=== PATIENT | male | born 1955 | race Caucasian/White ===

== ENCOUNTER 2016-11-17 18:11 | Inpatient (IN) | payer MEDICARE, MEDICAID ==
[~2016-11-17] VITALS: Ht 157.5 cm; Wt 69.9 kg
[2016-11-17] MEDS ORDERED: LORAZEPAM 2MG/ML CPJ IV ONE ×3 (19:00→22:30)
[2016-11-17] MEDS ORDERED: SODIUM CHLORIDE 0.9% 1000ML BAG (SEPSIS BOLUS) IV ONE (19:00)
[2016-11-17] MEDS ORDERED: LORAZEPAM 2MG/ML CPJ ONE (19:13)
[2016-11-17] MEDS ORDERED: LEVETIRACETAM 500MG PREMIX 100 ML IV ONE (19:45)
[2016-11-17 19:49] LABS: BASOPHILS % 0.3 % (0.0-2.0); EOSINOPHILS % 1.6 % (0.0-5.0); HEMATOCRIT. 43.2 % (42.0-52.0); LYMPHOCYTES % 17.1 % (20.0-50.0); MEAN CORPUSCULAR HEMOGLOBIN 27.5 pg (28.0-32.0); MEAN PLATELET VOLUME 9.4 fl (7.4-10.4); MONOCYTES % 10.4 % (2.0-8.0); NEUTROPHILS % 70.6 % (40.0-76.0); PLATELET 152 x1000/uL (130-400); RED BLOOD CELL COUNT 5.08 mill/uL (4.7-6.1); RED CELL DISTRIBUTION WIDTH 16.4 % (11.6-14.6)
[2016-11-17 19:53] LABS: CHLORIDE 99 mEq/L (98-107)
[2016-11-17 19:56] LABS: INR 1.3; PARTIAL THROMBOPLASTIN TIME 23.8 sec (23.4-31.0)
[2016-11-17 20:02] LABS: CARBON DIOXIDE 18 mEq/L (21-32); ETHANOL BLOOD < 10 mg/dL
[2016-11-17 20:05] LABS: TROPONIN I < 0.02 ng/mL (0.00-0.04)
[2016-11-17] MEDS ORDERED: LEVOFLOXACIN 750MG PREMIX 150 ML IV ONE (20:15)
[2016-11-17 20:23] LABS: CLARITY URINE CLEAR (CLEAR); COLOR URINE YELLOW (YELLOW); GLUCOSE URINE NEGATIVE (NEGATIVE); KETONES URINE NEGATIVE (NEGATIVE); LEUKOCYTE ESTERASE URINE NEGATIVE (NEGATIVE); NITRITE URINE NEGATIVE (NEGATIVE); OCCULT BLOOD URINE NEGATIVE (NEGATIVE); PROTEIN URINE NEGATIVE (NEGATIVE); UROBILINOGEN URINE 0.2 E.U./dL (0.2-1.0)
[2016-11-17 20:35] LABS: *AMPHETAMINES SCREEN URINE NEGATIVE (NEGATIVE); *BARBITURATES SCREEN URINE NEGATIVE (NEGATIVE); *BENZODIAZEPINES SCREEN URINE NEGATIVE (NEGATIVE); *COCAINE SCREEN URINE NEGATIVE (NEGATIVE); CANNABINOID URINE SCREEN NEGATIVE (NEGATIVE); METHADONE URINE SCREEN NEGATIVE (NEGATIVE); OPIATES URINE SCREEN PRESUMTIVE POSITIVE (NEGATIVE); PHENCYCLIDINE URINE SCREEN NEGATIVE (NEGATIVE)
[2016-11-17] MEDS ORDERED: ASPIRIN 300MG SUPP PR ONE (20:45)
[2016-11-17] MEDS ORDERED: ASPIRIN 81MG TABLET PO ONE (21:30)
[2016-11-17] MEDS ORDERED: ACETAMINOPHEN 325MG TABLET PO PRN (23:15)
[2016-11-17] MEDS ORDERED: IPRATROPIUM/ALBUTEROL 0.5-3(2.5)MG/3ML NEB INH PRN (23:15)
[2016-11-17] MEDS ORDERED: ONDANSETRON HCL 4MG/2ML VIAL IV PRN (23:15)
[2016-11-17] MEDS ORDERED: DOCUSATE SODIUM 100MG CAPSULE PO PRN (23:15)
[2016-11-17] MEDS ORDERED: NA PHOS,M-B/NA PHOS,DI-BA ENEMA 118ML PR PRN (23:15)
[2016-11-17] MEDS ORDERED: ACETAMINOPHEN 650MG SUPP PR PRN (23:15)
[2016-11-17] MEDS ORDERED: ACETAMINOPHEN 650MG/20.3ML UDC GT PRN (23:15)
[2016-11-17] MEDS ORDERED: DIPHENHYDRAMINE 50MG/ML VIAL IV PRN (23:15)
[2016-11-17] MEDS ORDERED: GUAIFENESIN 200MG/10ML SUGAR FREE UDC PO PRN (23:15)
[2016-11-17] MEDS ORDERED: MAGNESIUM/ALUMINUM HYDROXIDE/SIMETHICONE 30ML UDC PO PRN (23:15)
[2016-11-17 23:42] VITALS: BP 106/71
[2016-11-18] VITALS: BP 106/71
[2016-11-18] MEDS ORDERED: APIX2.5T PO (00:04)
[2016-11-18] MEDS ORDERED: COR25 PO (00:04)
[2016-11-18] MEDS ORDERED: PRAS10TA9 PO (00:04)
[2016-11-18] MEDS ORDERED: FURO20TA4 PO (00:04)
[2016-11-18] MEDS ORDERED: ZOLP10TA6 PO (00:04)
[2016-11-18] MEDS ORDERED: CARI350T PO (00:04)
[2016-11-18] MEDS ORDERED: ALPR1TAB2 PO (00:04)
[2016-11-18] MEDS ORDERED: FURO80TA3 PO (00:04)
[2016-11-18] MEDS ORDERED: ATOR-2 PO (00:04)
[2016-11-18] MEDS ORDERED: SPIR25TA4 PO (00:04)
[2016-11-18] MEDS ORDERED: LOSA25TA12 PO (00:04)
[2016-11-18] MEDS ORDERED: HYDR-519 PO (00:04)
[2016-11-18] MEDS ORDERED: HYDROCODONE/ACETAMINOPHEN 10/325MG TABLET PO PRN (00:15)
[2016-11-18] MEDS: HYDROCODONE/ACETAMINOPHEN 10/325MG TABLET PO PRN ×3 (03:15→21:27)
[2016-11-18 04:06] VITALS: BP 99/65
[2016-11-18] MEDS: SODIUM CHLORIDE 0.9% INJ 3ML FLUSH IVF SCH ×3 (05:32→21:29)
[2016-11-18 06:19] LABS: BASOPHILS % 0.3 % (0.0-2.0); EOSINOPHILS % 0.4 % (0.0-5.0); HEMATOCRIT. 38.9 % (42.0-52.0); HEMOGLOBIN. 12.8 g/dL (14.0-18.0); LYMPHOCYTES % 12.3 % (20.0-50.0); MEAN CORPUSCULAR HEMOGLOBIN 27.7 pg (28.0-32.0); MEAN CORPUSCULAR VOLUME 83.8 fL (80.0-94.0); MEAN PLATELET VOLUME 9.4 fl (7.4-10.4); MONOCYTES % 8.7 % (2.0-8.0); NEUTROPHILS % 78.3 % (40.0-76.0); PLATELET 128 x1000/uL (130-400); RED BLOOD CELL COUNT 4.64 mill/uL (4.7-6.1); RED CELL DISTRIBUTION WIDTH 16.2 % (11.6-14.6)
[2016-11-18 07:20] LABS: CARBON DIOXIDE 24 mEq/L (21-32); CHLORIDE 103 mEq/L (98-107)
[2016-11-18 07:27] LABS: CREATINE KINASE 54 IU/L (39-308); HDL CHOLESTEROL 41 mg/dL (40-59); LDL CHOLESTEROL 33 mg/dL (5-100); TROPONIN I 0.02 ng/mL (0.00-0.04)
[2016-11-18] MEDS ORDERED: SPIRONOLACTONE 25MG TABLET PO SCH (07:45)
[2016-11-18 07:54] VITALS: BP 100/72
[2016-11-18] MEDS: APIXABAN 2.5 MG TABLET PO SCH ×3 (08:35→16:30)
[2016-11-18] MEDS: LOSARTAN POTASSIUM 25 MG TABLET PO SCH (08:35)
[2016-11-18] MEDS: CARVEDILOL 25MG TABLET PO SCH ×2 (08:35→21:00)
[2016-11-18] MEDS: LEVETIRACETAM 500MG in SODIUM CHLORIDE 0.9% 100ML IV SCH ×2 (08:52→21:27)
[2016-11-18] MEDS ORDERED: FUROSEMIDE 80MG TABLET PO SCH (09:00)
[2016-11-18] MEDS ORDERED: LEVETIRACETAM 500 MG in SODIUM CHLORIDE 0.9% 100 ML IV SCH (09:00)
[2016-11-18] MEDS ORDERED: PRAS10TA6 PO (09:54)
[2016-11-18 12:29] VITALS: BP 91/63
[2016-11-18 12:44] LABS: T4 FREE 1.43 ng/dL (0.76-1.46)
[2016-11-18 16:28] VITALS: BP 119/92
[2016-11-18 17:15] LABS: CREATINE KINASE 49 IU/L (39-308); TROPONIN I < 0.02 ng/mL (0.00-0.04)
[2016-11-18 20:00] VITALS: BP_SYST 92; BP_SYST 94; BP_DIAS 64; BP_DIAS 65
[2016-11-18] MEDS ORDERED: KEPP500 PO (20:19)
[2016-11-18] MEDS ORDERED: MEDICATION NOT ON FORMULARY EA (Zolpidem Tartrate 10 MG) PO SCH (21:00)
[2016-11-18] MEDS ORDERED: FUROSEMIDE 20MG TABLET PO SCH (21:00)
[2016-11-18] MEDS ORDERED: ZOLPIDEM TARTRATE 5MG TABLET PO SCH (21:00)
[2016-11-19] VITALS: BP 93/62
[2016-11-19 04:00] VITALS: BP 96/56
[2016-11-19] MEDS: SODIUM CHLORIDE 0.9% INJ 3ML FLUSH IVF SCH (06:00)
[2016-11-19 06:53] LABS: BASOPHILS % 0.5 % (0.0-2.0); EOSINOPHILS % 2.6 % (0.0-5.0); HEMATOCRIT. 39.8 % (42.0-52.0); LYMPHOCYTES % 26.4 % (20.0-50.0); MEAN CORPUSCULAR HEMOGLOBIN 27.5 pg (28.0-32.0); MEAN CORPUSCULAR VOLUME 84.3 fL (80.0-94.0); MEAN PLATELET VOLUME 9.7 fl (7.4-10.4); MONOCYTES % 11.9 % (2.0-8.0); NEUTROPHILS % 58.6 % (40.0-76.0); PLATELET 127 x1000/uL (130-400); RED BLOOD CELL COUNT 4.73 mill/uL (4.7-6.1); RED CELL DISTRIBUTION WIDTH 16.6 % (11.6-14.6)
[2016-11-19 07:48] LABS: CARBON DIOXIDE 27 mEq/L (21-32); CHLORIDE 102 mEq/L (98-107)
[2016-11-19 07:54] LABS: CREATINE KINASE MB FRACTION 0.9 ng/mL (0.5-3.6)
[2016-11-19 08:00] VITALS: BP 131/65
[2016-11-19] MEDS ORDERED: PRASUGREL HYDROCHLORIDE 10 MG PO SCH (09:00)
[2016-11-19] MEDS ORDERED: EFFIENT 10 MG PO SCH (09:00)
[2016-11-19] MEDS: LOSARTAN POTASSIUM 25 MG TABLET PO SCH (09:56)
[2016-11-19] MEDS: LEVETIRACETAM 500MG in SODIUM CHLORIDE 0.9% 100ML IV SCH (09:57)
[2016-11-19] MEDS: APIXABAN 2.5 MG TABLET PO SCH (09:57)
[2016-11-19] MEDS: CARVEDILOL 25MG TABLET PO SCH (09:57)
[2016-11-19 12:45] VITALS: BP 98/58
[2016-11-19] MEDS ORDERED: LEVETIRACETAM 500MG TABLET PO SCH (13:00)
[2016-11-19] MEDS ORDERED: ASPIRIN 81MG TABLET PO SCH (13:30)
[2016-11-19] MEDS ORDERED: NITROGLYCERIN 0.4MG TABLET SL SL PRN (13:30)
== END 2016-11-19 13:55 | disposition home or self-care (01) | DRG 101 ==
LOC: ER 18:11 → 5WST 21:18 → ENRESERV 22:17
PROVIDERS: ADMIT Family Medicine; ATTEND Family Medicine
PROC: 4B02XTZ Measurement of Cardiac Defibrillator, External Approach (ICD-10-PCS; principal; 2016-11-19)
DX: G40.909 Epilepsy, unspecified, not intractable, without status epilepticus (principal); E87.2 Acidosis; I42.8 Other cardiomyopathies; I48.91 Unspecified atrial fibrillation; E44.1 Mild protein-calorie malnutrition; M48.02 Spinal stenosis, cervical region; I10 Essential (primary) hypertension; I25.10 Atherosclerotic heart disease of native coronary artery without angina pectoris; E11.9 Type 2 diabetes mellitus without complications; E78.5 Hyperlipidemia, unspecified; Z88.0 Allergy status to penicillin; Z88.5 Allergy status to narcotic agent; Z95.5 Presence of coronary angioplasty implant and graft; Z95.810 Presence of automatic (implantable) cardiac defibrillator; Z68.28 Body mass index [BMI] 28.0-28.9, adult; M50.30 Other cervical disc degeneration, unspecified cervical region
CPT/HCPCS: 36415; 70450; 71010; 72125; 80053; 80061; 80305; 81003; 82550; 82553; 82962; 83036; 83605; 83880; 84439; 84443; 84484; 85025; 85379; 85610; 85730; 86850; 86900; 87040; 87086; 92610; 93005; 93306; 93970; 96361; 96365; 96366; 96368; 96375; 97162; 99285; G0482; J1953; J1956; J2060; J7050